=== PATIENT | male | born 1970 | race Caucasian/White ===

== ENCOUNTER 2016-06-02 14:10 | Emergency (ER) | payer BC ==
[2016-06-02 14:58] VITALS: BP 147/85
--- NOTE | 2016-06-02 16:15 | UC ---
FLU HPI - HPI Summary HPI Summary: BODY ACHES FEVER CHEST CONGESTION SORE THROAT SINCE YESTERDAY - History of Current Complaint Chief Complaint: UCGeneralIllness Stated Complaint: ACHY/SORE THROAT Time Seen by Provider: 06/02/16 15:11 Hx Obtained From: Patient Onset/Duration: Sudden Onset, Lasting Days, Still Present Severity Currently: Moderate Severity Initially: Moderate Associated Signs & Symptoms: Positive: Fever, F/C, Myalgia, Sore Throat Related Hx: Possible Flu/Infectious Exposure - Risk Factors Influenza Risk Factors: Negative - Allergy/Home Medications Allergies/Adverse Reactions: Allergies Allergy/AdvReac Type Severity Reaction Status Date / Time NSAIDs AdvReac See Comment Verified 06/02/16 14:45 Home Medications: Home Medications B-Complex Vitamins [Vitamin B Complex] 2 tab PO DAILY 06/02/16 [History Confirmed 06/02/16] Cholecalciferol [Vitamin D-3] 2 tab PO DAILY 06/02/16 [History Confirmed ] [place]-3 Fatty Acids [Fish Oil] 4 tab PO DAILY 06/02/16 [History Confirmed ] PMH/Surg Hx/FS Hx/Imm Hx Previously Healthy: Yes Endocrine History Of: Reports: Diabetes - Surgical History Surgical History: Yes Surgery Procedure, Year, and Place: APPENDECTOMY, L knee, [place] Teeth extraction - Family History Known Family History: Negative: Respiratory Disease - Social History Occupation: Employed Full-time Lives: With Family Alcohol Use: None Substance Use Type: None, Prescribed Smoking Status (MU): Never Smoked Tobacco - Immunization History Most Recent Influenza Vaccination: Not UTD Review of Systems Constitutional: Fever, Chills Skin: Negative Eyes: Negative ENT: Sore Throat Respiratory: Cough Gastrointestinal: Negative Genitourinary: Negative Motor: Negative Neurovascular: Negative Musculoskeletal: Myalgia Neurological: Negative Psychological: Negative All Other Systems Reviewed And Are Negative: Yes Physical Exam Triage Information Reviewed: Yes Appearance: No Pain Distress, Well-Nourished, Ill-Appearing - MILD Vital Signs: Initial Vital Signs Temp 99.2 F 06/02/16 14:52 Pulse 74 06/02/16 14:52 Resp 18 06/02/16 14:52 BP 147/85 06/02/16 14:52 Pulse Ox 100 06/02/16 14:52 Vital Signs Reviewed: Yes Eye Exam: Normal Eyes: Positive: Conjunctiva Clear ENT: Positive: Normal ENT inspection, Hearing grossly normal, Pharyngeal erythema, TMs normal Dental Exam: Normal Neck exam: Normal Neck: Positive: Supple, Nontender, No Lymphadenopathy Respiratory Exam: Normal Respiratory: Positive: Chest non-tender, Lungs clear, Normal breath sounds, No respiratory distress, No accessory muscle use Cardiovascular Exam: Normal Cardiovascular: Positive: RRR, No Murmur, Pulses Normal Abdominal Exam: Normal Abdomen Description: Positive: Nontender, No Organomegaly Musculoskeletal Exam: Normal Musculoskeletal: Positive: Strength Intact, ROM Intact, No Edema Neurological Exam: Normal Psychological Exam: Normal Psychological: Positive: Normal Response To Family Skin Exam: Normal Flu Course/Dx - Differential Dx/Diagnosis Differential Diagnosis/HQI/PQRI: Influenza, Upper Respiratory Infection Provider Diagnoses: PHARYNGITIS. UPPER RESPIRATORY INFECTION Discharge - Discharge Plan Condition: Stable Disposition: HOME Patient Education Materials: Pharyngitis (ED), Viral Syndrome (ED) Referrals: Golden Álvarez MD [Primary Care Provider] -
== END 2016-06-02 16:15 | disposition home or self-care (01) ==
LOC: UCCORT 14:10
DX: J06.9 Acute upper respiratory infection, unspecified (principal); J02.9 Acute pharyngitis, unspecified; R03.0 Elevated blood-pressure reading, without diagnosis of hypertension; Z88.5 Allergy status to narcotic agent
CPT/HCPCS: 87502; 87651; 99211; G0463

== ENCOUNTER 2016-11-24 19:10 | Emergency (ER) | payer BC ==
[2016-11-24 19:24] VITALS: BP 152/90
--- NOTE | 2016-11-24 19:34 | UC ---
Throat Pain/Nasal Odilon HPI - HPI Summary HPI Summary: Sore throat since this morning. - History of Current Complaint Chief Complaint: UCRespiratory Stated Complaint: SORE THROAT Time Seen by Provider: 11/24/16 19:25 Hx Obtained From: Patient Onset/Duration: Sudden Onset - this morning., Worse Since - this morning. Severity: Moderate Cough: None Associated Signs & Symptoms: Negative: Drooling, Wheezing, Hoarseness, Sinus Discomfort, Nasal Discharge, Fever, Vomiting, Rash - Epiglottits Risk Factors Epiglottis Risk Factors: Negative - Allergies/Home Medications Allergies/Adverse Reactions: Allergies Allergy/AdvReac Type Severity Reaction Status Date / Time NSAIDs AdvReac See Comment Verified 11/24/16 19:18 PMH/Surg Hx/FS Hx/Imm Hx Endocrine History: Other Other Endocrine History: pre-diabetes Respiratory History: Other - Sleep apnea Other Respiratory History: Sleep apnea - Surgical History Surgical History: Yes Surgery Procedure, Year, and Place: APPENDECTOMY, L knee, [place] Teeth extraction - Family History Known Family History: Positive: Hypertension, Diabetes Negative: Respiratory Disease - Social History Occupation: Employed Full-time Alcohol Use: None Substance Use Type: None, Prescribed Smoking Status (MU): Never Smoked Tobacco Have You Smoked in the Last Year: No - Immunization History Most Recent Influenza Vaccination: Not UTD Review of Systems ENT: Sore Throat Is Patient Immunocompromised?: No All Other Systems Reviewed And Are Negative: Yes Physical Exam Triage Information Reviewed: Yes Appearance: No Pain Distress, Well-Nourished, Ill-Appearing Vital Signs: Initial Vital Signs Temp 98.6 F 11/24/16 19:19 Pulse 74 11/24/16 19:19 Resp 18 11/24/16 19:19 BP 152/90 11/24/16 19:19 Pulse Ox 97 11/24/16 19:19 Vital Signs Reviewed: Yes Eyes: Positive: Conjunctiva Clear ENT: Positive: Pharyngeal erythema - with some uvular swelling., Nasal congestion - with allergic congestion., TMs normal Neck exam: Normal Respiratory: Positive: Lungs clear, Wheezing - just with coughing. Cardiovascular Exam: Normal Musculoskeletal Exam: Normal Neurological Exam: Normal Psychological Exam: Normal Skin Exam: Normal Throat Pain/Nasal Course/Dx - Differential Dx/Diagnosis Differential Diagnosis/HQI/PQRI: Peritonsillar Abscess, Pharyngitis, URI Provider Diagnoses: Acute pharyngitis. Allergic rhinitis. Discharge - Discharge Plan Condition: Stable Disposition: HOME Prescriptions: predniSONE TAB* [Deltasone TAB*] 20 mg PO DAILY #18 tab Patient Education Materials: Pharyngitis (ED), Prednisone (By mouth), Allergic Rhinitis (ED) Additional Instructions: NEILMED SINUS RINSE: CHECK OUT AT [employer] Saline nasal wash helps with mucous, allergies and congestion. It can be used up to twice a day or only as needed. Use lukewarm tap water. It does not have to be sterilized or distilled water. Do 1/3 on each side and snort out of both nostrils. Repeat the process with 1/6 of the bottle on each side with snorting in between to finish the solution in the bottle
== END 2016-11-24 20:05 | disposition home or self-care (01) ==
LOC: UCCORT 19:10
DX: J02.9 Acute pharyngitis, unspecified (principal); J30.9 Allergic rhinitis, unspecified; R73.03 Prediabetes; G47.30 Sleep apnea, unspecified; Z88.6 Allergy status to analgesic agent
CPT/HCPCS: 87651; 99212; G0463

== ENCOUNTER 2017-11-06 08:37 | Emergency (ER) | payer BC ==
[2017-11-06 09:01] VITALS: BP 166/84
--- NOTE | 2017-11-06 10:00 | UC ---
Ear Complaint HPI - HPI Summary HPI Summary: Pt with left ear pain progressive since last night. states feels full with popping.no drainage. no fever, chills no sore throat. _ sinus pain no swimming. no gould. Pt used analgesic drops with little relief not immunocompromised pt's medications reviewed this visit - History of Current Complaint Chief Complaint: UCEar Stated Complaint: LEFT EAR COMPLAINT Time Seen by Provider: 11/06/17 09:35 Pain Intensity: 3 - Allergies/Home Medications Allergies/Adverse Reactions: Allergies Allergy/AdvReac Type Severity Reaction Status Date / Time NSAIDS (Non-Steroidal AdvReac See Comment Verified 11/06/17 09:00 Anti-Inflamma Home Medications: Home Medications Hydromorphone HCl 12 mg PO DAILY 11/06/17 [History Confirmed 11/06/17] Valsartan/HCTZ 320/12.5(NF) [Diovan Hct 320/12.5(NF)] 1 tab PO DAILY 11/06/17 [ History Confirmed 11/06/17] PMH/Surg Hx/FS Hx/Imm Hx Previously Healthy: Yes - Surgical History Surgical History: Yes Surgery Procedure, Year, and Place: APPENDECTOMY, L knee, [place] Teeth extraction - Family History Known Family History: Positive: Hypertension, Diabetes Negative: Respiratory Disease - Social History Alcohol Use: None Substance Use Type: None Smoking Status (MU): Never Smoked Tobacco Have You Smoked in the Last Year: No - Immunization History Most Recent Influenza Vaccination: Not UTD Review of Systems Constitutional: Negative ENT: Ear Ache All Other Systems Reviewed And Are Negative: Yes Physical Exam - Summary Physical Exam Summary: Vital Signs Reviewed: Yes A+Ox3, no distress Eyes: Conjunctiva Clear, DARCY. EOM intact and full ENT: left ear - canal swollen no drainage, mild erythema unable to see much of TM second to edema no mastoid pain no TMJ pain right TM wnl turinates inflammed mmoist no exudate Neck: Positive: Supple Respiratory: Positive: No respiratory distress, No accessory muscle use + CTA throughout no w/r Cardiovascular: RRR nl s1, s2 no m/r CBT <2 sec abd soft + BS nt/nd no guarding, no distension Musculoskeletal Exam: RECIO x 4 without difficulty Strength Intact, ROM Intact Neurological: Positive: Alert, + sensation throughout Psychological: Positive: Normal Response To Family Skin: Positive: no rash, no ecchymosis Triage Information Reviewed: Yes Vital Signs: Initial Vital Signs Temp 98.4 F 11/06/17 08:54 Pulse 72 11/06/17 08:54 Resp 17 11/06/17 08:54 BP 166/84 11/06/17 08:54 Pulse Ox 100 11/06/17 08:54 Ear Complaint Course/Dx - Course Course Of Treatment: Pt with progressive left ear pain on exam pt with clear left otitis externa. unable to viusalize TM - pt with boggy turbinates. will rx abx. motirn.apap. return precautions. pt non toxic appearing but discomfort. BP elevated= recommended pcp f/u - Differential Dx/Diagnosis Provider Diagnoses: left otitis externa Discharge - Sign-Out/Discharge Documenting (check all that apply): Patient Departure All imaging exams completed and their final reports reviewed: No Studies - Discharge Plan Condition: Stable Disposition: HOME Prescriptions: Amoxicillin/Clavulanate TAB* [Augmentin TAB 875*] 875 mg PO BID #20 tab Ciproflox/Dexameth OTIC.SUSP* [Ciprodex OTIC.SUSP*] 3 drop LEFT EAR TID #1 btl Patient Education Materials: Otitis Externa (ED), Ear Infection (ED) Referrals: Golden Álvarez MD [Primary Care Provider] - Additional Instructions: - apply ear drops exactly as prescribed - okay to apply heat pack to the outside of you ear - take oral antibiotics as prescribed until gone. This medication may cause diarrhea. Eating yogurt or taking pro-biotics may help with side effect - If you develop fevers, facial swelling, increased pain or any other questions or concerns it is recommended you go to the emergency department for further evaluation - Billing Disposition and Condition Condition: STABLE Disposition: Home
== END 2017-11-06 10:11 | disposition home or self-care (01) ==
LOC: UCCORT 08:37
DX: H60.92 Unspecified otitis externa, left ear (principal); Z88.6 Allergy status to analgesic agent
CPT/HCPCS: 99212; G0463

== ENCOUNTER 2018-08-07 07:30 | Inpatient (IN) | payer BC ==
--- NOTE | 2018-07-29 14:24 | HP ---
HISTORY AND PHYSICAL: DATE OF ADMISSION/SURGERY: 08/07/18 DATE OF VISIT: 07/25/18 SURGEON: Bertha Oshea MD* (dictated by EVE Cates). PROCEDURE: Right partial medial knee replacement. CHIEF COMPLAINT: Right knee pain. HISTORY OF PRESENT ILLNESS: Mr. Gaona is a 48-year-old gentleman with complaints of right medial knee pain secondary to osteoarthritis. He has failed conservative treatment and elected to proceed with a right partial medial knee replacement. PAST MEDICAL HISTORY: Hypertension, diabetes, sleep apnea, and chronic back pain. PAST SURGICAL HISTORY: Appendectomy, and left knee arthroscopy. CURRENT MEDICATIONS: 1. Eszopiclone 3 mg 1 tablet daily. 2. Hydromorphone 4 mg 4 times a day. 3. Metformin 500 mg 2 tablets twice a day. 4. Lisinopril 10 mg a day. 5. Hydromorphone extended release 12 mg 1 tablet daily. 6. Probiotic. 7. Fish oil. 8. Vitamin B12. 9. Vitamin D 2000 units daily. ALLERGIES: No known drug allergies. FAMILY HISTORY: Diabetes and hypertension. SOCIAL HISTORY: This is a 48-year-old gentleman, lives alone. He does not smoke or use drugs or alcohol. REVIEW OF SYSTEMS: A complete 14-point review of systems is reviewed with the patient. It is positive for diabetes. Denies history of DVT, PE, hepatitis, HIV, or anesthesia problems. PHYSICAL EXAMINATION GENERAL: He is well developed, well nourished, in no acute distress. VITAL SIGNS: He stands 6-feet 1-inch tall, weighs 324 pounds, his blood pressure 144/90, his heart rate 60. HEENT: Normocephalic, atraumatic. NECK: Supple. No palpable lymph nodes. PULMONARY: Lungs are clear to auscultation bilaterally. CARDIO: Regular rate and rhythm. Strong S1, S2. ABDOMEN: Soft, nontender, nondistended. NEUROLOGIC: He is alert and oriented x3. MUSCULOSKELETAL: Right lower extremity, the skin is intact. There are no open wounds or abrasions. There is moderate effusion of the right knee joint, tenderness over the medial joint line. Positive Apley's and Edi's medially. Range of motion is 0 to 120 degrees of flexion. He has a 2+ dorsalis pedis pulse. Intact sensation. He is able to dorsiflex and plantar flex. ASSESSMENT AND PLAN: Mr. Gaona is a 48-year-old gentleman with medial right knee pain secondary to advanced osteoarthritis. He has failed conservative treatment and elected to proceed with a right partial medial knee replacement. The surgery is scheduled for 08/07/[address] Oshea discussed the risks and benefits of the surgery at today's visit and all of his questions were answered. He will follow up with Dr. Oshea 2 weeks after the surgery. EVE CATES [id number]/[facility] #: [id number] [facility]
[~2018-08-07 07:30] MED LIST: Tranexamic Acid 1,000 MG in NS 0.9% 50 ML* (outpatient use) IV SCH
[2018-08-07] MEDS ORDERED: Propofol* 10 MG/ML 20 ML BTL ONE ×3 (07:41→12:46)
[2018-08-07] MEDS ORDERED: Midazolam* 1 MG/ML 2 ML VIAL (2 MG) ONE ×3 (07:41→13:01)
[2018-08-07] MEDS ORDERED: fentaNYL* 50 MCG/ML 2 ML VIAL (100 MCG VIAL) ONE (07:41)
[2018-08-07] MEDS ORDERED: Lidocaine 2% PF * 5 ML VIAL ONE ×2 (07:41→09:29)
[2018-08-07] MEDS ORDERED: ROPIVACAINE 5 MG/ML 30 ML BTL (0.5%) ONE ×2 (07:43→10:42)
[2018-08-07] MEDS ORDERED: Dexmedetomidine* 200 MCG/2 ML 2 ML VIAL ONE (07:43)
--- OUTSIDE RECORDS SUMMARY | 2018-08-07 08:09 | XMS REPORT | Continuity of Care Document ---
:1970 External Reference #:[id number] Author Name Sally Healy Care Team Providers Name Role Phone Golden Álvarez MD Primary Care Physician Unavailable Payers Date Identification Numbers Payment Provider Subscriber Policy Number: [id number] [employer] Michael Gaona PayID: [id number] [address] [address] [place] [id number] Advance Directives Description No Information Available Problems Active Problems Provider Date Localized, primary osteoarthritis Bertha Oshea M.D. Onset: 06/06/2018 Family History Date Family Member(s) Observation Comments Mother Rheumatoid Arthritis Social History Type Date Description Comments Sex Unknown Marital Status Lives With Alone Occupation Data Warehouse Architect ETOH Use Denies alcohol use Tobacco Use Start: Unknown Patient has never smoked Recreational Drug Use Denies Drug Use Smoking Status Reviewed: 07/25/18 Patient has never smoked Exercise Type/Frequency Does not exercise Allergies, Adverse Reactions, Alerts Description No Known Drug Allergies Medications Active Medications SIG Qnty Indications Ordering Provider Date Eszopiclone 1 tab by mouth Juancho Hutchinson, DO 3mg Tablets daily Hydromorphone HCL 1 tab by mouth Juancho Hutchinson, DO 4mg four times a day Tablets Metformin HCL ER 2 tabs by mouth Unknown 500mg twice a day Tablets ER 24HR Lidocaine applies to left Unknown 5% Ointment ankle twice daily Hydromorphone HCL ER 1 tab by mouth Unknown 12mg daily T24a Probiotic 1 by mouth every Unknown Capsules day Fish Oil 4 capsules by Unknown 1000mg Capsules mouth every morning Vitamin B-12 1 by mouth every Unknown 500mcg Tablets day Vitamin 2000 Iu 2 capsules by Unknown mouth daily Lisinopril 1 by mouth every Unknown 10mg Tablets day History Medications Valsartan-Hydrochlorothiazide 1 tab by Niziol, - 320-12.5mg Tablets mouth daily MD Golden 07/24/2018 Immunizations Description No Information Available Vital Signs Date Vital Result Comment 07/25/2018 9:16am Height 73.75 inches 6'1.75" Weight 324.00 lb Heart Rate 60 /min BP Systolic 144 mmHg BP Diastolic 90 mmHg BMI (Body Mass Index) 41.9 kg/m2 06/06/2018 8:48am Height 73.75 inches 6'1.75" Weight 315.00 lb BP Systolic 118 mmHg BP Diastolic 76 mmHg Pain Level 10 BMI (Body Mass Index) 40.7 kg/m2 05/29/2018 10:27am Height 73.75 inches 6'1.75" Weight 313.00 lb Heart Rate 65 /min BP Systolic Sitting 146 mmHg BP Diastolic Sitting 94 mmHg Respiratory Rate 16 /min Pain Level 7 O2 % BldC Oximetry 98 % BMI (Body Mass Index) 40.5 kg/m2 Results Description No Information Available Procedures Date Code Description Status 05/29/2018 46759 Rad Exam; Ankle Comp Completed 05/29/2018 95288 Xray Knee 3 Views Completed Encounters Type Date Location Provider Dx Diagnosis Office Visit 06/06/2018 Orthopedic Bertha Oshea, M17.11 Unilateral primary 8:30a [facility] osteoarthritis, right knee M25.561 Pain in right knee M25.461 Effusion, right knee Office Visit 05/29/2018 10:15a [facility]opedic Dayo Lara M17.0 Bilateral primary [facility] Shi MD osteoarthritis of AT [place] knee M21.42 Flat foot [pes planus] (acquired), left foot M21.41 Flat foot [pes planus] (acquired), right foot M21.072 Valgus deformity, not elsewhere classified, left ankle M25.572 Pain in left ankle and joints of left foot M25.561 Pain in right knee Plan of Treatment Future Appointment(s):08/18/2018 8:45 am - [facility]/07/2018 11:15 am - DENA Mcrae [facility]/07/2018 11:15 [facility] - [facility] - Bertha Oshea M.D.M17.11 Unilateral primary osteoarthritis, right kneeFollow up:Follow up: 2 weeks after tjiuflzX34.561 Pain in right kneeM25.461 Effusion, right knee
--- OUTSIDE RECORDS SUMMARY | 2018-08-07 08:09 | XMS REPORT | Continuity of Care Document ---
:1970 External Reference #:[id number] Author Name EVE Prado Address [address] , [place] [address] Care Team Providers Name Role Phone Golden Álvarez MD Primary Care Physician Unavailable Payers Date Identification Numbers Payment Provider Subscriber Policy Number: [id number] [employer] Michael Gaona PayID: [id number] [address] [address] [place] [address] Advance Directives Description No Information Available Problems Active Problems Provider Date Localized, primary osteoarthritis Bertha Oshea M.D. Onset: 06/06/2018 Family History Date Family Member(s) Observation Comments Mother Rheumatoid Arthritis Social History Type Date Description Comments Sex Unknown Marital Status Lives With Alone Occupation Housekeeping Aid ETOH Use Denies alcohol use Tobacco Use Start: Unknown Patient has never smoked Recreational Drug Use Denies Drug Use Smoking Status Reviewed: 06/06/18 Patient has never smoked Exercise Type/Frequency Does [...] left Unknown 5% Ointment ankle twice daily Valsartan-Hydrochloroth 1 tab by mouth Golden Álvarez, iazide daily 320-12.5mg Tablets Hydromorphone HCL ER 1 tab by mouth Unknown 12mg daily T24a Probiotic 1 by mouth every Unknown Capsules day Fish Oil 4 capsules by Unknown 1000mg Capsules mouth every morning Vitamin B-12 1 by mouth every Unknown 500mcg Tablets day Vitamin 2000 Iu 2 capsules by Unknown mouth daily Immunizations Description No Information Available Vital Signs Date Vital Result Comment 06/06/2018 8:48am Height 73.75 inches 6'1.75" Weight [...] Available Procedures Date Code Description Status 05/29/2018 37798 Rad Exam; Ankle Comp Completed 05/29/2018 76464 Xray Knee 3 Views Completed Encounters Type Date Location Provider Dx Diagnosis Office Visit 06/06/2018 Orthopedic Luis Martin7.11 Unilateral primary 8:30a [facility] osteoarthritis, right knee M25.561 Pain in right knee M25.461 Effusion, right knee Office Visit 05/29/2018 10:15a Orthopedic Dayo Lara M17.0 Bilateral primary [facility] Shi MD osteoarthritis of AT [place] knee M21.42 Flat foot [pes planus] (acquired), left foot M21.41 Flat foot [pes planus] (acquired), right foot M21.072 Valgus deformity, not elsewhere classified, left ankle M25.572 Pain in left ankle and joints of left foot M25.561 Pain in right knee Plan of Treatment Future Appointment(s):08/07/2018 11:15 am - DENA Mcrae at [facility]08/07/2018 11:15 am - EVE Prado at [facility]08/07/2018 11:15 am - Bertha Oshea M.D. at [facility]07/25/2018 9:00 am - [facility] O[facility] M[facility]D. [facility]06/06/2018 - Bertha Oshea M.D.M17.11 Unilateral primary osteoarthritis, right kneeM25.561 Pain in right kneeM25.461 Effusion, right knee
[2018-08-07] MEDS ORDERED: ceFAZolin 2 GM PREMIX in ORs 2 GM/50 ML BAG IVPB ONE (08:24)
[2018-08-07] MEDS ORDERED: ceFAZolin 1 GM in Dextrose (*) 1 GM/50 ML BAG IVPB ONE (08:25)
[2018-08-07] MEDS ORDERED: Buffered Lidocaine 1% SYRIN* 1 ML/SYRINGE INTRADERM ONE (08:25)
[2018-08-07] MEDS ORDERED: Bupivacaine 0.5% SDV PF* 30ML VIAL ONE (09:28)
[2018-08-07] MEDS ORDERED: Dexamethasone IV* 4 MG/ML 1 ML (4 MG) ONE (11:54)
[2018-08-07] MEDS ORDERED: Ondansetron INJ* 2 MG/ML VIAL IV PRN ×2 (12:14→14:13)
[2018-08-07] MEDS ORDERED: HYDROmorphone INJ1* 1 MG/ML SYRINGE IV PRN (12:14)
[2018-08-07] MEDS ORDERED: oxyCODONE TAB* 5 MG TAB PO PRN (12:14)
[2018-08-07] MEDS ORDERED: Naloxone* 0.4 MG/ML 1 ML VIAL IV PRN (12:14)
[2018-08-07] MEDS ORDERED: KETAMINE HCL* 50 MG/ML 10 ML VIAL ONE (13:47)
[2018-08-07] MEDS ORDERED: oxyCODONE/Acetamin 5/325 MG* TAB PO PRN (14:13)
[2018-08-07] MEDS ORDERED: diPHENhydraMINE IV* 50 MG/ML 1 ml VIAL (BENADRYL) IV PRN (14:13)
[2018-08-07] MEDS ORDERED: Bisacodyl SUPP* 10 MG SUPP PR PRN (14:13)
[2018-08-07] MEDS ORDERED: traMADol TAB* 50 MG PO PRN (14:13)
[2018-08-07] MEDS ORDERED: Magnesium Hydroxide LIQ* 30 ML UDC PO PRN (14:13)
[2018-08-07] MEDS ORDERED: Ondansetron TAB* 4 MG PO PRN (14:13)
[2018-08-07] MEDS ORDERED: Polyethylene Glycol 3350* 17 GM PACKET PO PRN (14:13)
[2018-08-07] MEDS: Lactated Ringers 1000 ML Bag* 1,000 ML IV SCH (15:45)
[2018-08-07] MEDS: Acetaminophen IV 1GM/100ML * 1,000 MG/100 ML VIAL IVPB ONE ×2 (16:22→16:27)
[2018-08-07] MEDS: HYDROmorphone TAB* 4 MG PO SCH ×2 (16:29→20:23)
[2018-08-07] MEDS: Cyclobenzaprine TAB* 10 MG PO PRN (16:31)
[2018-08-07] MEDS ORDERED: Ketorolac INJ* 30 MG/ML 1 ML VIAL ONE (16:56)
[2018-08-07] MEDS ORDERED: Ketorolac INJ* 30 MG/ML 1 ML VIAL IV PRN (17:15)
--- NOTE | 2018-08-07 17:18 | PN ---
Progress Note - Progress Note Date of Service: 08/07/18 Note: Patient seen OOB in chair on floor s/p uni total knee right. He states he is in significant pain, takes dilaudid baseline for chronic back pain. Will order Toradol and long acting narcotic. Has active dorsiflexion right ankle, sensation intact.
[2018-08-07] MEDS: Morphine TAB Extended Release (*) 30 MG TAB.ER PO SCH (17:58)
--- NOTE | 2018-08-07 19:37 | CONSULT ---
Subjective Date of Service: 08/07/18 Interval History: This is a 48 year old male with history of impaired fasting glucose, obesity, chronic pain, HTN and osteoarthritis that presented to Dr. Oshea for chronic right knee pain that has failed conservative management, and has undergone knee arthroplasty today. He is seen in his room, post-operatively. We are being asked to consult for medical co-management. Review of Systems - Measurements Intake and Output: Intake and Output Last 24 Hours 08/05/18 08/06/18 08/07/18 08/08/18 06:59 06:59 06:59 06:59 Intake Total 1410 Output Total 1200 Balance 210 Weight 316 lb Intake: IV Fluids 1000 LR 1000 Oral 410 Output: Ferreira 1200 - Review of Systems Constitutional Symptoms: Negative: Weight Gain, Weight Loss, Weakness, Fatigue, Fever, Night Sweats, Unexplained Falls, Other Dermatology: Negative: Normal, Rash, Skin Lesions, Cancer, Skin Lumps, Other HEENT: Negative: Normal, Change in Hearing, Vertigo, Dental Problems, Tinnitus, Sinus Problem, Other Eyes: Negative: Normal, Change in Vision, Double Vision, Eye Pain, Glaucoma, Cataract, Contacts or Glasses, Other Thyroid: Negative: Normal, Goiter, Thyroid Nodule, Cold Intolerance, Heat Intolerance , Sweatiness, Tremor, Frequent Defecation, Constipation, Palpitations, Primary Hypothyroidism, Primary Hyperthyroidism, Weight Loss, Weight Gain, Change in Skin/Hair, Change in Menstruation, Radiation Exposure, Other Pulmonary: Negative: Normal, Cough, Sputum, Hemoptysis, Wheezing, Respiratory Distress, Shortness of Breath, COPD, Asthma, Exercise Intolerance, Home Oxygen, Other Cardiology: Negative: Normal, Chest Pain, Shortness of Breath, Palpitations, Swelling of Ankles, Peripheral Vascular Dis, Edema, Faintness, Syncope, Claudication, Proximal NocturnalDyspnea, Orthopnoea, Other Gastroenterology: Negative: Normal, Abdominal Pain, Nausea, Vomiting, Anorexia, Indigestion, Difficulty Swallowing, Heartburn, Constipation, Diarrhea, Blood in Stools, Change in Bowel Habits, Haematemesis, Melena, Other Genital - Urinary: Negative: Normal, Dysuria, Hematuria, Polyuria, Nocturia, Other Genitourinary - Male: Negative: Prostatism, Erectile Dysfunction, Family Hx of Prostate Cancer, Other Musculoskeletal: Positive: Joint Pain, Joint Stiffness, Other - chronic pain syndrome Endocrinology: Positive: Obesity, Hyperglycemia Negative: Normal, Thyroid Problems, Adrenal Problems, Gonadal Problems, Family Hx Endocrine Disorders, Diabetes Mellitus, Hx Hypoglycemia, Diabetic Foot Ulcers, Calluses, Hirsutism, Menstrual Abnormalities, Polydipsia, Polyuria , Gonadal Problems, Gynecomastia, Pituitary disease, Other Hematologic/Lymphatic: Negative: Anemia, Easy Bruising, Hx Leukemia, Hx Lymphoma, Use of Anticoagulant, Use of Antiplatelet Drugs, Other Neurology: Negative: Normal, Headache, Migraines, Change in Vision, Diplopia, Dizziness , Change in Balancing, Change in Coordination, Change in Memory, Change in Speech, Change in Sphincter Function, Change in Walking, Numbness\\Paresthesiae, Unexplained Weakness, Hx of Stroke\\TIA, Hx of Seizures, Other Psychiatry: Negative: Normal, Depression, Anxiety, Depressed Mood, Anhedonia, Sexual Dysfunction, Weight Change, Guilt Feelings, Tearfulness, Unusual Fatigue, Unusual Anxiety, Suicidal Ideation, Hypomania, Eating Disorders, Other Allergic/Immunologic: Negative: Hx Anaphylaxis, Hx Angioedema, Hx Environmental, Hx Seasonal, Asthma, Hx HIV, Immunocompromise, Swollen Glands LymphNodes, Other Objective Active Medications: Acetaminophen (Tylenol Tab*) 975 mg PO Q8HR [facility] Apixaban (Eliquis*) 2.5 mg PO BID [facility] Bisacodyl (Dulcolax Supp*) 10 mg ME DAILY PRN PRN Reason: constipation Cyclobenzaprine HCl (Flexeril Tab*) 10 mg PO TID PRN PRN Reason: SPASMS Last Admin: 08/07/18 16:31 Dose: 10 mg Diphenhydramine HCl (Benadryl Iv*) 12.5 mg IV Q6H PRN PRN Reason: PRURITIS Docusate Sodium (Colace Cap*) 100 mg PO BID [facility] Hydromorphone HCl (Dilaudid Tab*) 4 mg PO QID [facility] Last Admin: 08/07/18 16:29 Dose: 4 mg Tranexamic Acid 1,000 mg/ (Sodium Chloride) 60 mls @ 120 mls/hr IV ONCE Stop: 08/07/18 23:59 Cefazolin Sodium 1 gm/ Sodium (Chloride) 50 mls @ 200 mls/hr IVPB Q8H [facility] Stop: 08/08/18 11:44 Lactated Ringer's (Lactated Ringers 1000 Ml Bag*) 1,000 mls @ 100 mls/hr IV PER RATE [facility] Last Admin: 08/07/18 15:45 Dose: 100 mls/hr Ketorolac Tromethamine (Toradol Inj*) 30 mg IV Q6H PRN PRN Reason: PAIN Lactulose (Lactulose*) 30 ml PO Q6H PRN PRN Reason: constipation Lisinopril (Prinivil Tab*) 10 mg PO QAM SHAYAN Magnesium Hydroxide (Milk Of Magnesia Liq*) 30 ml PO BID [facility] Magnesium Hydroxide (Milk Of Magnesia Liq*) 30 ml PO Q6H PRN PRN Reason: constipation Metformin HCl (Glucophage*) 1,000 mg PO BID [facility] Morphine Sulfate (Morphine Inj (Syringe))*) 2 mg IV Q2H PRN PRN Reason: PAIN Morphine Sulfate (Ms Contin(*)) 30 mg PO Q12H [facility] Last Admin: 08/07/18 17:58 Dose: 30 mg Ondansetron HCl (Zofran Inj*) 4 mg IV Q6H PRN PRN Reason: nausea Ondansetron HCl (Zofran Tab*) 4 mg PO Q6H PRN PRN Reason: NAUSEA Oxycodone HCl (Roxycodone Tab*) 10 mg PO Q4H PRN PRN Reason: SEVERE PAIN Oxycodone/Acetaminophen (Percocet 5/325 Tab*) 1 tab PO Q4H PRN PRN Reason: PAIN Oxycodone/Acetaminophen (Percocet 5/325 Tab*) 2 tab PO Q4H PRN PRN Reason: PAIN Polyethylene Glycol/Electrolytes (Miralax*) 17 gm PO DAILY PRN PRN Reason: Constipation Tramadol HCl (Ultram*) 50 mg PO Q6H PRN PRN Reason: PAIN Zolpidem Tartrate (Ambien Tab*) 10 mg PO BEDTIME [facility]; Protocol Vital Signs - 8 hr 08/07/18 08/07/18 08/07/18 14:09 14:10 14:11 Temperature 96.8 F Pulse Rate 63 68 Respiratory 16 Rate Blood Pressure 136/90 (mmHg) O2 Sat by Pulse 100 96 Oximetry 08/07/18 08/07/18 08/07/18 14:16 14:21 14:26 Temperature Pulse Rate 64 55 55 Respiratory Rate Blood Pressure 142/73 127/71 134/81 (mmHg) O2 Sat by Pulse 96 96 97 Oximetry 08/07/18 08/07/18 08/07/18 14:31 14:46 15:21 Temperature 96.8 F Pulse Rate 54 54 51 Respiratory 16 Rate Blood Pressure 132/74 134/79 145/74 (mmHg) O2 Sat by Pulse 98 98 100 Oximetry 08/07/18 08/07/18 08/07/18 16:22 16:29 16:31 Temperature 97.8 F Pulse Rate 56 Respiratory 16 18 18 Rate Blood Pressure 140/81 (mmHg) O2 Sat by Pulse 99 Oximetry 08/07/18 08/07/18 08/07/18 17:03 17:58 18:22 Temperature Pulse Rate Respiratory 18 18 18 Rate Blood Pressure (mmHg) O2 Sat by Pulse Oximetry Oxygen Devices in Use Now: None Appearance: alert, NAD Eyes: No Scleral Icterus, PERRLA Ears/Nose/Mouth/Throat: NL Teeth, Lips, Gums, Mucous Membranes Moist Neck: NL Appearance and Movements; NL JVP, Trachea Midline Respiratory: Symmetrical Chest Expansion and Respiratory Effort, Clear to Auscultation Cardiovascular: NL Sounds; No Murmurs; No JVD, RRR Abdominal: NL Sounds; No Tenderness; No Distention Extremities: No Edema, No Clubbing, Cyanosis Skin: No Rash or Ulcers Neurological: Alert and Oriented x 3, NL Sensation Nutrition: Taking PO's Assessment/Plan - Billing Assessment: 1. RTKA, PODO - POC as per ortho - Pain control - DVT prophy with eliquis - Bowel regimen - PT/OT 2. HTN - Hold lisinopril, restart tomorrow 3. Chronic pain - On long and short-acting dilaudid - May need consult with pain management if uncontrolled 4. Impaired fasting Glucose - Patient states he is "not diabetic" but takes metformin BID as a "preventive " - Unaware of his A1C - Follow with an time clock mechanic - continue metformin BID at home dose VTE PPX: - Eliquis Diet: - Heart Healthy Code Status: - Full code Admission Status and Rationale: - Inpatient, dispo per ortho Thank you for the courtesy of this consultation, will follow the patient with you.
[2018-08-07] MEDS: metFORMIN* 1,000 MG TAB PO SCH (20:23)
[2018-08-07] MEDS: Docusate CAP* 100 MG PO SCH (20:23)
[2018-08-07] MEDS: ceFAZolin 1 GM ADVAN(*) 1 GM in NS 0.9% 50 ML* 50 ML IVPB SCH (20:23)
[2018-08-07] MEDS: Magnesium Hydroxide LIQ* 30 ML UDC PO SCH (20:24)
[2018-08-07] MEDS ORDERED: Zolpidem TAB* 10 MG PO SCH (21:00)
--- NOTE | 2018-08-07 21:31 | OP ---
DATE OF OPERATION: 08/07/18 - ROOM #348 DATE OF : 68 SURGEON: Bertha Oshea MD. DEVELOPMENT PLANNER: EVE Cates. Ms. Rosas did help throughout the procedure with preparation of the leg, wound retraction, manipulation of the knee, and wound closure. ANESTHESIOLOGIST: Dr. Danielle. ANESTHESIA: Spinal. PRE-OP DIAGNOSIS: Right knee severe medial compartment osteoarthritis. POST-OP DIAGNOSIS: Right knee severe medial compartment osteoarthritis. OPERATIVE PROCEDURE: Right medial knee uniarthroplasty. TOURNIQUET TIME: 74 minutes. ESTIMATED BLOOD LOSS: 200 cc. COMPLICATIONS: None. BRIEF HISTORY/INDICATIONS: Mr. Gaona is a 48-year-old gentleman with 1 year of chronic severe right medial knee pain. He failed conservative treatment and radiographs showed advanced arthritis with [id number] contact in the medial compartment, minimal degenerative changes were noted in the lateral or patellofemoral compartment. We discussed the risks and benefits of both medial compartmental uniarthroplasty as well as total knee arthroplasty. We felt he was a good candidate for medial compartment uniarthroplasty and he wished to proceed. Informed consent was obtained from the patient. He understood the risks of surgery included, but were not limited to bleeding, infection, damage to nearby structures, continued pain, need for further surgery, need for revision to total knee arthroplasty, stroke, heart attack, blood clot, and . He wished to proceed. INTRAOPERATIVE FINDINGS: Intraoperatively, the patient had complete loss of cartilage in the medial compartment. Some very minimal patellofemoral arthritic changes were noted. No visible degenerative changes were noted in the lateral compartment. ACL and PCL were intact. HARDWARE: This is the [employer] unicompartmental Lorenzo knee system; for the femur, a size E right medial femoral component, high-flex precoated femoral component; for the tibia, a size 3 right medial tibial component; for the insert, a size 3 , 8 mm articular surface insert which was polyethylene. The [employer] Robotic system was used as well. DESCRIPTION OF PROCEDURE: Mr. Gaona was identified in the preanesthesia unit. His right lower extremity was marked as the correct operative side. Informed consent was signed and placed in the chart. The patient was taken to the operating room and placed under anesthesia. A Ferreira catheter was placed. Tourniquet was placed on the right thigh. Right lower extremity was prepped and draped in the usual sterile fashion. Preop time-out was made to correctly identify the patient, side, and site. Appropriate perioperative antibiotics were given within 1 hour of incision. Tourniquet was inflated and total tourniquet time for this procedure was 74 minutes. The [employer] robotic system from [employer] was used. A medially placed incision was made over the patellar tendon and patella. A medial parapatellar arthrotomy was made with a 10-blade and the patella was subluxed laterally. Electrocautery was used to elevate soft tissue off the superomedial tibia to the midsagittal plane. The knee was flexed up. There was obvious extensive arthritis in the medial compartment, very minimal arthritis in the patellofemoral compartment, and no visible arthritis in the lateral compartment. The decision was made to proceed with the medial unicompartmental arthroplasty. At this time, two 4 mm pins were placed in the distal femur and two 4 mm pins were placed in the midshaft of the tibia. The arrays were locked into position on the pins for the femur and the tibia. Navio checkpoints were used to obtain the hip sensor of motion. Multiple checkpoints along the medial knee, femur and tibial anatomy were entered into the computer. The center of the ankle was evaluated and the algorithm was used to choose the placement and sizes of the implants. Knee was taken through a range of motion without stress and with valgus stress. Femoral component chosen was a size E, tibial component chosen was a size 3. Based on the navigational system, the hardware positioning was satisfactory. At this point, the robotic zarina was used to remove the predetermined amount of bone along the distal medial femoral condyle. The 2 lug holes were burred as well. Next, the predetermined amount of proximal tibial bone was carefully removed using the robotic zarina handpiece. A straight flat file was used to smooth the edges of the burred bone. The tibia was sized to a size 3. Size 3 tibial trial was pinned into place and the 2 lugs were drilled through the guide. A trial size E femoral component and an 8 mm insert trial were placed. The knee was taken through a range of motion. The knee varus preoperatively was corrected by 5 degrees. There was satisfactory tension/laxity of the medial compartment. There was satisfactory patellofemoral tracking with no impingement along the medial implants. All trials were removed. Final implants were cemented into place using Simplex bone cement. It started with the tibia followed by the femur. An 8 mm insert was chosen and locked into position on the tibial tray. Any excess cement was carefully removed. The knee was brought out into full extension and tourniquet was turned down. The knee was copiously irrigated with sterile saline. Electrocautery was used to obtain meticulous hemostasis. The knee was taken through a final range of motion once the cement had cured. There was great tracking of the femoral component on the tibial component. There was satisfactory amount of medial laxity and full range of motion of the knee from full extension to 130 degrees of flexion. The knee was copiously irrigated with sterile saline. The arthrotomy was closed using interrupted #1 Vicryl. The rest of the incision was closed in a layered fashion using 0 and 2- 0 Vicryl. The skin was closed using running 3-0 nylon suture. Sterile Xeroform , 4x4s, and Webril were used to cover the incisions. The femoral and tibial pinholes were closed with 3-0 nylon and covered with Xeroform, 4x4s, and Webril. Phil wrap and cold pack were placed over the dressings. The patient's anesthesia was reversed without difficulty. He was taken to the PACU in stable condition. Intended weightbearing will be weightbearing as tolerated. Intended DVT prophylaxis will be Eliquis. [id number] #: [id number] EMERY
[2018-08-07] MEDS: Acetaminophen TAB* 325 MG PO SCH (22:05)
[2018-08-07] MEDS: Morphine INJ* 2 MG/ML 1 ML SYRINGE (TWO MG - NEW SYRINGE VERSION) IV PRN (22:51)
[2018-08-08] MEDS: ceFAZolin 1 GM ADVAN(*) 1 GM in NS 0.9% 50 ML* 50 ML IVPB SCH ×2 (03:24→10:39)
[2018-08-08] MEDS: oxyCODONE/Acetamin 5/325 MG* TAB PO PRN ×2 (03:24→08:08)
[2018-08-08] MEDS: Lactated Ringers 1000 ML Bag* 1,000 ML IV SCH (03:25)
[2018-08-08] MEDS: oxyCODONE TAB* 5 MG TAB PO PRN ×2 (05:53→13:33)
[2018-08-08] MEDS: Acetaminophen TAB* 325 MG PO SCH ×2 (06:06→13:30)
[2018-08-08] MEDS: Morphine TAB Extended Release (*) 30 MG TAB.ER PO SCH (06:46)
[2018-08-08 07:36] LABS: Hematocrit 37 % (42-52); Hemoglobin 12.5 g/dL (14.0-18.0); Mean Platelet Volume 8.2 fL (7.4-10.4); Platelet Count 210 10^3/uL (150-450)
[2018-08-08 07:58] LABS: BUN/Creatinine Ratio 17.9 (8-20); Calcium 9.2 mg/dL (8.6-10.3); EGFR African American 117.5 (>60); EGFR Non-African American 97.1 (>60); Potassium 4.6 mmol/L (3.5-5.0)
[2018-08-08] MEDS: Magnesium Hydroxide LIQ* 30 ML UDC PO SCH (08:01)
[2018-08-08] MEDS: Docusate CAP* 100 MG PO SCH (08:07)
[2018-08-08] MEDS: HYDROmorphone TAB* 4 MG PO SCH ×2 (08:07→13:33)
[2018-08-08] MEDS: metFORMIN* 1,000 MG TAB PO SCH (08:08)
[2018-08-08] MEDS ORDERED: Lisinopril TAB* 10 MG PO SCH (09:00)
[2018-08-08] MEDS ORDERED: Apixaban* 2.5 MG TAB PO SCH (09:00)
[2018-08-08] MEDS: Morphine INJ* 2 MG/ML 1 ML SYRINGE (TWO MG - NEW SYRINGE VERSION) IV PRN ×2 (10:35→15:32)
[2018-08-08] MEDS: Cyclobenzaprine TAB* 10 MG PO PRN ×2 (10:35→15:32)
[2018-08-08 15:32] VITALS: BP 143/58
== END 2018-08-08 16:20 | disposition home health service (06) | DRG 302 ==
LOC: AA 08:05 → SSU 14:13
PROVIDERS: ADMIT Physician Assistant; ATTEND Orthopaedic Surgery Adult Reconstructive Orthopaedic Surgery
PROC: 0SRC0L9 Replacement of Right Knee Joint with Medial Unicondylar Synthetic Substitute, Cemented, Open Approach (ICD-10-PCS; principal; 2018-08-07 10:45)
DX: M17.11 Unilateral primary osteoarthritis, right knee (principal); I10 Essential (primary) hypertension; E11.9 Type 2 diabetes mellitus without complications; G89.29 Other chronic pain; M54.9 Dorsalgia, unspecified; M25.461 Effusion, right knee; F32.9 Major depressive disorder, single episode, unspecified; G47.33 Obstructive sleep apnea (adult) (pediatric); R53.82 Chronic fatigue, unspecified; E66.9 Obesity, unspecified; Z68.39 Body mass index [BMI] 39.0-39.9, adult; Z83.3 Family history of diabetes mellitus; Z82.49 Family history of ischemic heart disease and other diseases of the circulatory system
CPT/HCPCS: 36415; 80048; 85014; 85018; 85049; 88305; A9270-GY; C1776; J0690; J1100; J1885; J2250; J2270; J2704; J2795; J3010; J3490